=== PATIENT | female | born 1965 | race African-American/Black ===

== ENCOUNTER 2019-11-15 11:05 | Observation (INO) | payer OTHER ==
[2019-11-15] MEDS ORDERED: NA CHLORIDE 0.9% 1,000 ML ONE (12:00)
[2019-11-15] MEDS ORDERED: ACETAMINOPHEN 500 MG TAB ONE (12:00)
--- NOTE | 2019-11-15 12:07 | RAD REPORT ---
EXAM DESCRIPTION: RAD - Chest Single View - 11/15/2019 12:01 pm CLINICAL HISTORY: COUGH Chest pain. COMPARISON: No comparisons FINDINGS: Portable technique limits examination quality. The lungs are grossly clear. The heart is normal in size. No displaced fractures.Left port catheter h as tip in the SVC. IMPRESSION: No acute intrathoracic process suspected.
[2019-11-15 12:14] LABS: Absolute Lymphocytes (CBC) 0.8 K/uL (0.7-4.9); Basophils % 0.1 % (0-1.3); Lymphocytes % 11.6 % (15.3-44.8); MPV 8.3 fL (7.6-11.3); RBC Red Blood Cell Count 3.89 M/uL (3.86-4.86)
[2019-11-15 12:19] LABS: Potassium 3.4 mmol/L (3.5-5.1)
[2019-11-15] MEDS ORDERED: OSELTAMIVIR 75 MG CAP ONE (13:00)
[2019-11-15 13:10] LABS: Blood Morphology Comment NOT SEEN (NOT SEEN); Platelet Estimate ADEQ
--- NOTE | 2019-11-15 15:28 | ER ---
Nurse's Notes [facility] Name: Marisela Gomez Age: 54 yrs Sex: Female : 1965 Arrival Date: 11/15/2019 Time: 11:08 Bed 8 Private MD: Diagnosis: Hypotension;Influenza due to certain identified influenza viruses;Fever, unspecified Presentation: 11/15 11:17 Presenting complaint: Patient states: body aches, leg aching X 2 days, worse yesterday iw and head felt heavy , grandbaby was diagnosed with flu, vomited once last night. Transition of care: patient was not received from another setting of care. Onset of symptoms was November 13, 2019. Risk Assessment: Do you want to hurt yourself or someone else? Patient reports no desire to harm self or others. Initial Sepsis Screen: Does the patient meet any 2 criteria? Does the patient have a suspected source of infection?. 11:17 Method Of Arrival: Ambulatory iw 11:17 Acuity: JOSE 3 iw 14:31 Care prior to arrival: None. 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 - Social history:: Smoking status: Patient/guardian denies using tobacco. - Ebola Screening: : Patient negative for fever greater than or equal to 101.5 degrees Fahrenheit, and additional compatible Ebola Virus Disease symptoms Patient denies exposure to infectious person Patient denies travel to an Ebola-affected area in the 21 days before illness onset No symptoms or risks identified at this time. Screenin:02 Abuse screen: Denies threats or abuse. Denies injuries from another. Nutritional jl7 screening: No deficits noted. Tuberculosis screening: No symptoms or risk factors identified. Fall Risk IV access (20 points). Total Lantigua Fall Scale indicates No Risk (0-24 pts). Assessment: 11:20 General: Appears in no apparent distress. uncomfortable, ill, Behavior is calm, jl7 cooperative, appropriate for age. Pain: Complains of pain in achy all over Pain currently is 6 out of 10 on a pain scale. Neuro: Level of Consciousness is awake, alert, obeys commands, Oriented to person, place, time, situation. Cardiovascular: Patient's skin is warm and dry. Respiratory: Airway is patent Respiratory effort is even, unlabored, Respiratory pattern is regular, symmetrical. GI: Reports vomiting. : No signs and/or symptoms were reported regarding the genitourinary system. EENT: No signs and/or symptoms were reported regarding the EENT system. Derm: Skin is pink, warm \T\ dry. 12:30 Reassessment: Patient appears in no apparent distress at this time. No changes from ca1 previously documented assessment. Patient and/or family updated on plan of care and expected duration. Pain level reassessed. Patient is alert, oriented x 3, equal unlabored respirations, skin warm/dry/pink. 13:30 Reassessment: Patient appears in no apparent distress at this time. Patient and/or ca1 family updated on plan of care and expected duration. Pain level reassessed. Patient is alert, oriented x 3, equal unlabored respirations, skin warm/dry/pink. Patient states feeling better. 14:29 Reassessment: Patient appears in no apparent distress at this time. No changes from ca1 previously documented assessment. Patient and/or family updated on plan of care and expected duration. Pain level reassessed. Patient is alert, oriented x 3, equal unlabored respirations, skin warm/dry/pink. 17:08 Reassessment: Patient appears in no apparent distress at this time. Patient and/or jl7 family updated on plan of care and expected duration. Pain level reassessed. Patient is alert, oriented x 3, equal unlabored respirations, skin warm/dry/pink. Vital Signs: 11:18 BP 96 / 59; Pulse 103; Resp 18 S; Temp 103.2(O); Pulse Ox 98% on R/A; Weight 90.72 kg; iw Height 5 ft. 3 in. (160.02 cm); Pain 6/10; 12:01 BP 104 / 55; Pulse 97; Resp 16 S; Pulse Ox 99% on R/A; jl7 12:56 Pulse 87; Resp 19 S; Temp 101.8(O); Pulse Ox 94% on R/A; jl7 13:30 BP 87 / 54; Pulse 70; Resp 16 S; Pulse Ox 100% on R/A; jl7 14:29 BP 81 / 56; Pulse 74; Resp 14; Temp 99.6(O); Pulse Ox 97% on R/A; ca1 14:45 BP 91 / 57 Supine; Pulse 70; Resp 16 S; Pulse Ox 97% on R/A; jl7 15:00 BP 85 / 56 Standing; Pulse 76; Resp 17 S; Pulse Ox 99% on R/A; jl7 15:30 BP 86 / 58; Pulse 69; Resp 19 S; Pulse Ox 98% on R/A; jl7 16:00 BP 88 / 57; Pulse 72; Resp 17 S; Pulse Ox 100% on R/A; jl7 16:30 BP 90 / 54; Pulse 72; Resp 17 S; Pulse Ox 99% on R/A; jl7 17:08 BP 89 / 54; Pulse 72; Resp 16; Temp 98.8(O); Pulse Ox 100% on R/A; jl7 18:02 BP 95 / 58; Pulse 76; Resp 17 S; Pulse Ox 100% on R/A; jl7 11:18 Body Mass Index 35.43 (90.72 kg, 160.02 cm) iw ED Course: 11:08 Patient arrived in ED. mr 11:18 Triage completed. iw 11:21 Arm band placed on. iw 11:23 Benito Shelton FNP-C [facility]. la1 11:23 Chao Joyce MD is Attending Physician. la1 11:25 Patient has correct armband on for positive identification. Bed in low position. Call jl7 light in reach. Side rails up X 1. Pulse ox on. NIBP on. 11:26 Juwan Crouch, GENEVIEVE is Primary Nurse. jl7 11:38 Flu Sent. kj1 11:52 Inserted saline lock: 22 gauge in left antecubital area, using aseptic technique. Blood kj1 collected. 11:52 Initial lab(s) drawn, by ED staff, sent to lab. ca1 12:00 Chest Single View XRAY In Process Unspecified. EDMS 12:04 CBC with Diff Sent. kj1 12:04 BMP Sent. kj1 13:52 First set of blood cultures drawn by me. jl7 14:45 Second set of blood cultures drawn by me. jl7 15:11 Inserted saline lock: 22 gauge in left hand, using aseptic technique. Blood collected. jl7 15:26 Genoveva Alas MD is Hospitalizing Provider. la1 16:40 Assisted to bedside commode. jp3 18:07 No provider procedures requiring assistance completed. Patient admitted, IV remains in jl7 place. intact, No redness/swelling at site. Administered Medications: 12:00 Drug: NS 0.9% 1000 ml Route: IV; Rate: 1000 ml; Site: left antecubital; jl7 14:30 Follow up: Response: No adverse reaction; IV Status: Completed infusion; IV Intake: ca1 1000ml 12:00 Drug: Tylenol 1000 mg Route: PO; jl7 13:02 Follow up: Response: No adverse reaction; Temperature is decreased jl7 13:01 Drug: Tamiflu 75 mg Route: PO; jl7 14:30 Follow up: Response: No adverse reaction ca1 15:11 Drug: NS 0.9% 1000 ml Route: IV; Rate: 125 ml/hr; Site: left hand; jl7 18:08 Follow up: IV Status: Infusion continued upon admission jl7 15:43 Drug: NS 0.9% 500 ml Route: IV; Rate: bolus; Site: left hand; jl7 16:15 Follow up: Response: No adverse reaction; IV Status: Completed infusion; IV Intake: jl7 500ml Intake: 14:30 IV: 1000ml; Total: 1000ml. ca1 16:15 IV: 500ml; Total: 1500ml. jl7 Outcome: 15:26 Decision to Hospitalize by Provider. la1 18:07 Admitted to Tele accompanied by tech, family with patient, via wheelchair, room 204, jl7 with chart, Report called to GENEVIEVE Grimaldo 18:07 Condition: stable 18:07 Discharge instructions given to patient, family, Instructed on the need for admit, Demonstrated understanding of instructions. 18:09 Patient left the ED. jl7 Signatures: Dispatcher [employer] SHRAVAN Jessica JimEricka RN RN iw Benito Shelton, TRUCKING CONTRACTOR-C TRUCKING CONTRACTOR-Cla1 Juwan Crouch RN RN jl7 Rell Xiong jp3 Alayna Duncan RN RN ca1 Yuli Gonzalez kj1 Corrections: (The following items were deleted from the chart) 11:17 Acuity: JOSE 4 iw iw
--- NOTE | 2019-11-15 15:28 | EDPHYS ---
Physician Documentation [facility] Name: Marisela Gomez Age: 54 yrs Sex: Female : 1965 Arrival Date: 11/15/2019 Time: 11:08 Bed 8 Private MD: ED Physician Chao Joyce HPI: 11/15 12:43 This 54 yrs old Black Female presents to ER via Ambulatory with complaints of Headache. la1 12:43 This 54 yrs old Black Female presents to ER via Ambulatory with complaints of body la1 aches, fever. 12:43 The patient complains of pain to the forehead, right zoroastrianism and left zoroastrianism. Onset: The la1 symptoms/episode began/occurred 2 day(s) ago. Associated signs and symptoms: Pertinent positives: fever, nausea, Pertinent negatives: altered mental status, neck stiffness, paresthesias, sinus tenderness, vision changes, vision loss. Severity of symptoms: At its worst the pain was mild. pt reports she has a family member who was dx with the flu. Has been having body aches and pains with fever for the last 2 days. . 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 - Social history:: Smoking status: Patient/guardian denies using tobacco. - Ebola Screening: : Patient negative for fever greater than or equal to 101.5 degrees Fahrenheit, and additional compatible Ebola Virus Disease symptoms Patient denies exposure to infectious person Patient denies travel to an Ebola-affected area in the 21 days before illness onset No symptoms or risks identified at this time. ROS: 12:44 Constitutional: + fever Eyes: Negative for injury, pain, redness, and discharge, ENT: la1 Negative for injury, pain, and discharge, Neck: Negative for injury, pain, and swelling, Cardiovascular: Negative for chest pain, palpitations, and edema, Respiratory: + for cough and pleuritic chest pain' Abdomen/GI: + for nausea, vomited x 1 Back: Negative for injury and pain, MS/Extremity: Negative for injury and deformity, Skin: Negative for injury, rash, and discoloration, Neuro: Negative for headache, weakness, numbness, tingling, and seizure. Exam: 12:45 Constitutional: This is a well developed, well nourished patient who is awake, alert, la1 and in no acute distress. Head/Face: Normocephalic, atraumatic. Eyes: Pupils equal round and reactive to light, extra-ocular motions intact. Periorbital areas with no swelling, redness, or edema. ENT: Mucous membranes moist. Neck: Trachea midline, no thyromegaly or masses palpated, and no cervical lymphadenopathy. Supple, full range of motion without nuchal rigidity, or vertebral point tenderness. No Meningismus. Chest/axilla: Normal chest wall appearance and motion. Nontender with no deformity. No lesions are appreciated. Cardiovascular: Regular rate and rhythm with a normal S1 and S2. No gallops, murmurs, or rubs. Normal PMI, no JVD. No pulse deficits. Respiratory: Lungs have equal breath sounds bilaterally, clear to auscultation . No rales, rhonchi or wheezes noted. No increased work of breathing, no retractions or nasal flaring. Abdomen/GI: Soft, non-tender, with normal bowel sounds. No distension or tympany. No guarding or rebound. No evidence of tenderness throughout. Back: No spinal tenderness. No costovertebral tenderness. Full range of motion. Neuro: Awake and alert, GCS 15, oriented to person, place, time, and situation. l. Normal gait. Vital Signs: 11:18 BP 96 / 59; Pulse 103; Resp 18 S; Temp 103.2(O); Pulse Ox 98% on R/A; Weight 90.72 kg; iw Height 5 ft. 3 in. (160.02 cm); Pain 6/10; 12:01 BP 104 / 55; Pulse 97; Resp 16 S; Pulse Ox 99% on R/A; jl7 12:56 Pulse 87; Resp 19 S; Temp 101.8(O); Pulse Ox 94% on R/A; jl7 13:30 BP 87 / 54; Pulse 70; Resp 16 S; Pulse Ox 100% on R/A; jl7 14:29 BP 81 / 56; Pulse 74; Resp 14; Temp 99.6(O); Pulse Ox 97% on R/A; ca1 14:45 BP 91 / 57 Supine; Pulse 70; Resp 16 S; Pulse Ox 97% on R/A; jl7 15:00 BP 85 / 56 Standing; Pulse 76; Resp 17 S; Pulse Ox 99% on R/A; jl7 15:30 BP 86 / 58; Pulse 69; Resp 19 S; Pulse Ox 98% on R/A; jl7 16:00 BP 88 / 57; Pulse 72; Resp 17 S; Pulse Ox 100% on R/A; jl7 16:30 BP 90 / 54; Pulse 72; Resp 17 S; Pulse Ox 99% on R/A; jl7 17:08 BP 89 / 54; Pulse 72; Resp 16; Temp 98.8(O); Pulse Ox 100% on R/A; jl7 18:02 BP 95 / 58; Pulse 76; Resp 17 S; Pulse Ox 100% on R/A; jl7 11:18 Body Mass Index 35.43 (90.72 kg, 160.02 cm) iw MDM: 11:23 Patient medically screened. la1 15:26 Data reviewed: vital signs, nurses notes, lab test result(s), EKG, I have discussed the la1 patient's presentation/case with the attending Emergency Department Physician; and as a result, I will admit patient. Data interpreted: Pulse oximetry: on room air is 99 %. Interpretation: normal. Counseling: I had a detailed discussion with the patient and/or guardian regarding: the historical points, exam findings, and any diagnostic results supporting the discharge/admit diagnosis, lab results, the need for further work-up and treatment in the hospital. Physician consultation: Genoveva Alas MD was called at 15:28, was contacted at 15:28, regarding admission, to the telemetry unit. and will see patient. ED course: pt BP maintaining in the high 80s low 90s after fluids, lactate is WNL, no elevation in WBC. Discussed concern with ED attending who agrees it would be jimenez to admit patient in observation status due to concern for hypotension and worsening of symptoms. 11/15 11:27 Order name: Flu; Complete Time: 12:06 [facility] 11/15 11:43 Order name: CBC with Diff; Complete Time: 14:31 [facility] 11/15 11:43 Order name: BMP; Complete Time: 12:40 [facility] 11/15 13:10 Order name: Manual Differential; Complete Time: 14:31 [facility] 11/15 14:35 Order name: Blood Culture Adult (2) [facility] 11/15 14:35 Order name: Lactate; Complete Time: 15:19 [facility] 11/15 11:43 Order name: Chest Single View XRAY; Complete Time: 12:10 [facility] 11/15 11:43 Order name: SL; Complete Time: 12:01 [facility] Administered Medications: 12:00 Drug: NS 0.9% 1000 ml Route: IV; Rate: 1000 ml; Site: left antecubital; 7 14:30 Follow up: Response: No adverse reaction; IV Status: Completed infusion; IV Intake: ca1 1000ml 12:00 Drug: Tylenol 1000 mg Route: PO; jl7 13:02 Follow up: Response: No adverse reaction; Temperature is decreased jl7 13:01 Drug: Tamiflu 75 mg Route: PO; jl7 14:30 Follow up: Response: No adverse reaction ca1 15:11 Drug: NS 0.9% 1000 ml Route: IV; Rate: 125 ml/hr; Site: left hand; jl7 18:08 Follow up: IV Status: Infusion continued upon admission [facility] 15:43 Drug: NS 0.9% 500 ml Route: IV; Rate: bolus; Site: left hand; jl7 16:15 Follow up: Response: No adverse reaction; IV Status: Completed infusion; IV Intake: jl7 500ml Disposition: 18:33 Co-signature as Attending Physician, Chao Joyce MD I agree with the assessment and kdr plan of care. Disposition: 11/15/19 15:26 Hospitalization ordered by Genoveva Alas for Observation. Preliminary diagnosis are Hypotension, Influenza due to certain identified influenza viruses, Fever, unspecified. - Bed requested for Telemetry/MedSurg (observation). - Status is Observation. jl7 - Condition is Stable. - Problem is new. - Symptoms are unchanged. UTI on Admission? No Signatures: Dispatcher [employer] EDSC Chao Joyce MD MD [facility] Ericka Gonzalez RN RN Benito Foster FNP-C OSTRICH FARMER-Cla1 Juwan Crouch RN RN jl7 Oliver Mckeon, RN RN ja1 Alayna Duncan RN ca1 Corrections: (The following items were deleted from the chart) 17:32 15:26 Hospitalization Ordered by Genoveva Alas MD for Observation. Preliminary diagnosis ja1 is Hypotension; Influenza due to certain identified influenza viruses; Fever, unspecified. Bed requested for Telemetry/MedSurg (observation). Status is Observation. Condition is Stable. Problem is new. Symptoms are unchanged. UTI on Admission? No. la1 18:09 17:32 11/15/2019 15:26 Hospitalization Ordered by Genoveva Alas MD for Observation. jl7 Preliminary diagnosis is Hypotension; Influenza due to certain identified influenza viruses; Fever, unspecified. Bed requested for Telemetry/MedSurg (observation). Status is Observation. Condition is Stable. Problem is new. Symptoms are unchanged. UTI on Admission? No. ja1
[2019-11-15 18:22] VITALS: BMI 33.3
[2019-11-15] MEDS: INSULIN -REGULAR HUMAN 50 UNIT/0.5 ML ML SQ SCH ×2 (18:44→20:22)
[2019-11-15] MEDS ORDERED: ACETAMINOPHEN 500 MG TAB PO PRN (18:44)
[2019-11-15] MEDS ORDERED: ONDANSETRON 4 MG/2 ML VIAL IV PRN (18:44)
[2019-11-15] MEDS: NA CHLORIDE 0.9% 1,000 ML IV SCH (19:04)
--- NOTE | 2019-11-15 20:06 | HP ---
Date of Admission: 11/15/2019 Chief Complaint: Generalized malaise. History Of Present Illness: Patient is a 54-year-old female with past medical history of essential h ypertension, diabetes, congestive heart failure, post chemotherapy, systolic dysfunction, thyroid nod ules, history of breast cancer, status post surgery, chemo and radiation, currently in remission foll ows at [facility], comes in with 2 days of generalized malaise as well as some generalized weakness, some cough that is nonproductive. The patient's symptoms are constant, moderate, progressively wors ening. She does report being exposed to her grandson who was an who was found to be positive for the flu. Patient was febrile upon arrival to the ER. She otherwise denies any significant chill s, nausea, vomiting. In the ER, she was found to be hypotensive in the 90s/50s and continued to drop her blood pressure was 80s/50s. The patient's workup revealed white count of 7, her potassium was 3 .4, glucose was 185. Lactate was negative. She did not appear to be septic. Her influenza screen c zeferino back positive for flu B. Chest x-ray did not show any acute changes. Patient was then referred for admission. She was given 1 L normal saline bolus and Tamiflu. When seen in the ER, she was awak e, alert, oriented x3, in some mild distress. Past Medical History: Hypertension; diabetes mellitus type 2, non-insulin requiring; congestive hear t failure; systolic dysfunction; breast cancer status diagnosed in 2015, status post mastectomy on th e right in 2017; and chemo and radiation therapy, thyroid nodules. Past Surgical History: Right mastectomy in 2017, thyroid nodule biopsy, Port-A-Cath on the left. Allergies: NO KNOWN DRUG ALLERGIES. Medications: The patient is on Coreg, Entresto, and metformin. Social History: Patient denies any tobacco use or alcohol use. Family History: Positive for hypertension. Review of Systems: Ten-point system reviewed, negative except as per HPI. Physical Examination: Vital Signs: Blood pressure 96/56, pulse 103, respirations 18, temperature 103.2. BMI is 35.4. General: Awake, alert, oriented x3, ill-appearing female, obese, BMI 35. HEENT: Normocephalic, atraumatic. PERRLA, EOMI. Dry mucous membranes. Oropharynx is clear. Conju nctivae anicteric. Neck: Supple. No JVD trachea midline. CV: S1, S2. Regular rate and rhythm. Peripheral pulses present. Respiratory: Moving air well bilaterally. No wheezing or stridor. No use of accessory muscles. Gastrointestinal: Abdomen is soft, nontender, nondistended. Positive bowel sounds. No guarding or rigidity. Extremities: No clubbing, cyanosis, or edema. No calf tenderness. Neuro: Cranial nerves 2 through 12 intact grossly. No focal neurological deficits. Speech is susy l. Skin: No rashes. Normal skin turgor. Psych: Mood is okay. Affect is full. Insight and judgment are good. Laboratory Data: Sodium 138, potassium 3.4, chloride 104, CO2 of 28, BUN 13, creatinine 1.14, glucos e 185, lactate 1, calcium 8.5. WBC 7.1, H and H 12 and 36, platelets 145, neutrophils 72%, lymphocyt es 11.6%, monocytes 15.9%. Influenza B positive. Imaging Studies: Chest x-ray personally reviewed shows no acute intrathoracic process. Left port ca theter has tip in the SVC. Assessment And Plan: A 54-year-old female with 1.Acute hypotension likely related to flu, possibly developing sepsis. 2.Systemic inflammatory response syndrome. Patient has temperature 103.2. Patient is tachypneic. Does have influenza. Patient received 1 L normal saline bolus. Does have history of congestive hear t failure. We will repeat 0.5 L bolus and follow up on blood pressure. Patient will watch for signs of developing sepsis. Blood cultures have been obtained. Continue with Tamiflu for influenza B. 3.Influenza B. Continue Tamiflu 75 mg p.o. b.i.d. Droplet precautions. 4.History of essential hypertension. We will hold blood pressure medications for now due to acute h ypotension. 5.Diabetes mellitus type 2. We will start on sliding scale insulin and monitor blood glucose levels . 6.Congestive heart failure, systolic dysfunction. Patient is on Entresto. We will monitor I's and O's, free fluid restriction. 7.History of breast cancer, status post right mastectomy. 8.Obesity, BMI 35. Counseled. 9.Deep venous thrombosis prophylaxis, Lovenox. Plan: Admit patient to Med-Surg, place in observation. SA/MODL Voice ID: [id number]
[2019-11-15] MEDS: ALBUTEROL 2.5 MG/3 ML NEB SOL NEB SCH (20:20)
[2019-11-15] MEDS: IPRATROPIUM BROM 0.5MG/2.5ML NEB SCH (20:20)
[2019-11-15] MEDS: OSELTAMIVIR 75 MG CAP PO SCH (20:23)
[2019-11-15 21:41] LABS: Urine Appearance CLEAR; Urine Bilirubin NEGATIVE (NEG); Urine Blood TRACE (NEG); Urine Color YELLOW; Urine Glucose NEGATIVE (NEG); Urine Protein NEGATIVE (NEG); Urine Specific Gravity 1.015 (1.005-1.030); Urine Urobilinogen 0.2 mg/dL (0.2-1.0)
[2019-11-15 21:58] LABS: Urine Bacteria 20-50 /HPF (<20)
[2019-11-15 21:59] LABS: Urine Culture Reflex Order REFLEXED
[2019-11-16 01:23] VITALS: O2SAT 97
[2019-11-16] MEDS: ALBUTEROL 2.5 MG/3 ML NEB SOL NEB SCH ×2 (02:00→07:50)
[2019-11-16] MEDS: IPRATROPIUM BROM 0.5MG/2.5ML NEB SCH ×2 (02:00→07:50)
[2019-11-16] MEDS: NA CHLORIDE 0.9% 1,000 ML IV SCH (03:55)
[2019-11-16 06:05] LABS: Absolute Lymphocytes (CBC) 1.2 K/uL (0.7-4.9); Basophils % 0.3 % (0-1.3); Hematocrit 32.7 % (36.0-45.0); Lymphocytes % 28.5 % (15.3-44.8); MPV 8.7 fL (7.6-11.3); RBC Red Blood Cell Count 3.52 M/uL (3.86-4.86)
[2019-11-16 06:16] LABS: ALT/SGPT 39 U/L (12-78); AST/SGOT 36 U/L (15-37); Albumin 2.9 g/dL (3.4-5.0); Alkaline Phosphatase 31 U/L (45-117); BUN Blood Urea Nitrogen 12 mg/dL (7-18); Bicarbonate 24 mmol/L (21-32); Bilirubin Total 0.3 mg/dL (0.2-1.0); Glucose Level 87 mg/dL (74-106); Magnesium 1.9 mg/dL (1.8-2.4); Potassium 3.5 mmol/L (3.5-5.1); Sodium Level 144 mmol/L (136-145)
[2019-11-16] MEDS: INSULIN -REGULAR HUMAN 50 UNIT/0.5 ML ML SQ SCH (07:30)
[2019-11-16] MEDS ORDERED: INFLUENZA VACCINE (for 3y+) 0.5 ML DOSE IMVAC ONE (08:00)
[2019-11-16] MEDS: OSELTAMIVIR 75 MG CAP PO SCH (08:54)
[2019-11-16] MEDS ORDERED: ENOXAPARIN 40 MG/0.4 ML SQ SCH (09:00)
[2019-11-16] MEDS ORDERED: POTASSIUM CL SA 10 MEQ TAB PO ONE (09:00)
[2019-11-16 09:03] VITALS: BP 114/58; TEMP 98.7
--- NOTE | 2019-11-17 03:53 | DS ---
Date of Discharge: 11/16/2019 Admitting Diagnoses: 1.Systemic inflammatory response syndrome. 2.Influenza A. 3.Acute hypotension. 4.History of diabetes mellitus type 2, stable. 5.Congestive heart failure, systolic dysfunction on Entresto. 6.History of essential hypertension, currently hypotensive. 7.History of breast cancer, status post right mastectomy. 8.Obesity, BMI 35. 9.Hypokalemia. Hospital Course: Patient is a 54-year-old female with multiple comorbid conditions including hyperte nsion, diabetes, heart failure, comes in with generalized malaise. Patient was found to be flu posit cliff, she was started on Tamiflu. She was also found to be hypotensive. Blood pressure refractory to IV fluids bolus dropping down to the 80s/50s. She also had some hypokalemia. Patient was thought t o be developing sepsis. She was tachycardic, tachypneic, and hypotensive. Patient did respond event ually to IV fluids. She had high temperature as well 103.2. She was observed overnight in [facility], continued with IV hydration and it did improve, her blood pressure came up to the 114/58. Patie nt stated that she usually does stay on the low side between 120s to 110s. She was instructed to hol d her blood pressure medications for blood pressure less than 140. Overall, patient did well. She h ad improvement in her condition. She had some low-grade temperatures of 100.5 last night around midn ight, since then has been afebrile. Patient was able to ambulate without difficulty. No dizziness. The patient's generalized malaise also improved. Patient was then cleared for discharge and was sen t home in a stable condition activity as tolerated. Medications: As per medication reconciliation list. Finish off course of Tamiflu. Followup: Follow up with primary care physician in 2-3 days. Return to ER for worsening condition. Diet: Heart healthy. Activity: As tolerated. Discharge Instructions: Patient also instructed to ask family members to be tested for flu-type symp toms and to continue with droplet precautions. Good handwashing to prevent spread of the flu. Physical Examination: General: Awake, alert, and oriented x3, obese female, not in any acute distress. CV: S1, S2. No murmurs. Regular rate and rhythm. Respiratory: Moving air well bilaterally. No wheezing or stridor. No use of accessory muscles. Gastrointestinal: Abdomen is soft, nontender, nondistended. Positive bowel sounds. Extremities: No clubbing, cyanosis, or edema. Neurologic: Nonfocal. SA/MODL Voice ID: [id number] Report ID: [id number]
== END 2019-11-16 10:18 | disposition home or self-care (01) ==
LOC: ER 11:05 → ERHOLD 16:06 → 2ND 18:06
PROVIDERS: ADMIT Family Medicine; ATTEND Family Medicine
DX: J11.1 Influenza due to unidentified influenza virus with other respiratory manifestations (principal); I95.9 Hypotension, unspecified; E11.9 Type 2 diabetes mellitus without complications; I11.0 Hypertensive heart disease with heart failure; I50.22 Chronic systolic (congestive) heart failure; E66.9 Obesity, unspecified; Z68.33 Body mass index [BMI] 33.0-33.9, adult; Z85.3 Personal history of malignant neoplasm of breast; E87.6 Hypokalemia
CPT/HCPCS: 96361; 87040 ×2; 87088; 85025 ×2; 81001; 87086; 80048; 36415; 83735; 82947 ×3; 83605; 80053; 87804 ×2; 71045; 94640 ×3; 94760 ×2; 96360; 99285; J1650; J7030 ×3; G0378 ×3

== ENCOUNTER 2020-02-29 18:14 | Emergency (ER) | payer OTHER ==
[2020-02-29] MEDS ORDERED: HYDROCODONE/APAP 5/325 MG TAB ONE (19:57)
--- NOTE | 2020-02-29 20:06 | RAD REPORT ---
EXAM DESCRIPTION: RAD - Hand Left 3 View - 02/29/2020 7:57 pm CLINICAL HISTORY: PAIN COMPARISON: No comparisons FINDINGS: A mild tuft fracture is suspected involving the thumb. No additional fracture seen.
--- NOTE | 2020-02-29 21:03 | ER ---
Nurse's Notes [facility] Name: Marisela Gomez Age: 54 yrs Sex: Female : 1965 Arrival Date: 02/29/2020 Time: 18:16 Bed 24 Private MD: Diagnosis: Nondisplaced fracture of distal phalanx of left thumb Presentation: 02/28 19:12 Chief complaint: Patient states: "I closed my fingers in the garage door.". Coronavirus jd3 screen: Proceed with normal triage. Ebola Screen: Patient negative for fever greater than or equal to 101.5 degrees Fahrenheit, and additional compatible Ebola Virus Disease symptoms. Initial Sepsis Screen: Does the patient meet any 2 criteria? No. Patient's initial sepsis screen is negative. Does the patient have a suspected source of infection? No. Patient's initial sepsis screen is negative. Risk Assessment: Do you want to hurt yourself or someone else? Patient reports no desire to harm self or others. Onset of symptoms was February 29, 2020. 19:12 Method Of Arrival: Ambulatory jd3 19:12 Acuity: JOSE 4 jd3 Triage Assessment: 20:00 General: Appears in no apparent distress. Behavior is calm, cooperative, appropriate jv1 for age. Pain: Complains of pain in little finger, ring finger and middle finger in the left hand Pain radiates to left arm Pain currently is 7 out of 10 on a pain scale. Quality of pain is described as aching, Pain began 2 hours ago. EENT: No deficits noted. Neuro: Level of Consciousness is awake, alert, obeys commands, Oriented to person, place, time, situation, Appropriate for age Speech is normal. Cardiovascular: Denies chest pain, Heart tones S1 S2 present. Respiratory: Airway is patent Respiratory effort is even, unlabored, Respiratory pattern is regular, symmetrical. GI: No signs and/or symptoms were reported involving the gastrointestinal system. Bowel sounds present X 4 quads. : No signs and/or symptoms were reported regarding the genitourinary system. Derm: Skin is intact, is healthy with good turgor. Musculoskeletal: Capillary refill < 3 seconds, Range of motion: limited in left hand. Injury Description: Crush injury sustained to left hand specifically the little, ring and middle finger was sustained 1-2 hours ago. 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 - Social history:: Smoking status: Patient denies any tobacco usage or history of. Patient/guardian denies using alcohol, street drugs, The patient lives with family. - Family history:: not pertinent. Screenin:59 Abuse screen: Denies threats or abuse. Nutritional screening: No deficits noted. jv1 Tuberculosis screening: No symptoms or risk factors identified. Fall Risk None identified. Assessment: 20:00 Reassessment: Patient appears in no apparent distress at this time. Patient and/or ls4 family updated on plan of care and expected duration. Pain level reassessed. Patient is alert, oriented x 3, equal unlabored respirations, skin warm/dry/pink. 21:20 Reassessment: Patient appears in no apparent distress at this time. Patient and/or ls4 family updated on plan of care and expected duration. Pain level reassessed. Patient is alert, oriented x 3, equal unlabored respirations, skin warm/dry/pink. Vital Signs: 19:17 BP 116 / 82; Pulse 61; Resp 16 S; Temp 98.8(O); Pulse Ox 96% on R/A; Weight 84.37 kg jd3 (R); Height 5 ft. 2 in. (157.48 cm) (R); Pain 4/10; 19:17 Body Mass Index 34.02 (84.37 kg, 157.48 cm) jd3 ED Course: 18:16 Patient arrived in ED. ag5 19:14 Triage completed. jd3 19:18 Arm band placed on. jd3 19:20 No provider procedures requiring assistance completed. Patient did not have IV access ls4 during this emergency room visit. 19:29 rGant Moreno PA is PHCP. ihsan 19:29 David Soler MD is Attending Physician. [facility] 19:58 Hand Left 3 View XRAY In Process Unspecified. EDMS 20:06 Bed in low position. Side rails up X 1. jv1 20:27 Akanksha Mehta, RN is Primary Nurse. ls4 Administered Medications: 19:59 Drug: [place] 5 mg-325 mg 1 tabs Route: PO; jv1 21:14 Follow up: Response: No adverse reaction; Marked relief of symptoms ls4 Outcome: 21:02 Discharge ordered by . sheri 21:20 Patient left the ED. ls4 21:20 Discharged to home ambulatory. ls4 21:20 Condition: stable 21:20 Discharge instructions given to patient, Instructed on discharge instructions, follow up and referral plans. Demonstrated understanding of instructions, follow-up care, medications, Prescriptions given X 1. Signatures: Dispatcher [employer] EDMS Grant Moreno PA PA jmm Davies, Jonathon, RN RN jd3 David Soler MD MD ma2 Chapis Gross RN RN jv1 Akanksha Mehta, RN RN ls4 Bridget Perales ag5 Corrections: (The following items were deleted from the chart) 23:47 21:51 Patient left the ED. ls4 ls4
--- NOTE | 2020-02-29 21:03 | EDPHYS ---
Physician Documentation [facility] Name: Marisela Gomez Age: 54 yrs Sex: Female : 1965 Arrival Date: 02/29/2020 Time: 18:16 Bed 24 Private MD: ED Physician David Soler HPI: 02/28 21:00 This 54 yrs old Black Female presents to ER via Ambulatory with complaints of Finger ma2 Injury. 21:00 Mechanism of injury: Crush injury:. Associated injuries: The patient sustained hand ma2 injury, garage door closed on hand . The patient has not experienced similar symptoms in the past. no laceration . 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 - Social history:: Smoking status: Patient denies any tobacco usage or history of. Patient/guardian denies using alcohol, street drugs, The patient lives with family. - Family history:: not pertinent. ROS: 21:00 Constitutional: Negative for fever, chills, and weight loss. ma2 21:00 All other systems are negative. Exam: 21:00 Constitutional: This is a well developed, well nourished patient who is awake, alert, ma2 and in no acute distress. Neck: Trachea midline, no thyromegaly or masses palpated, and no cervical lymphadenopathy. Supple, full range of motion without nuchal rigidity, or vertebral point tenderness. No Meningismus. Chest/axilla: Normal chest wall appearance and motion. Nontender with no deformity. No lesions are appreciated. Cardiovascular: Regular rate and rhythm with a normal S1 and S2. No gallops, murmurs, or rubs. Normal PMI, no JVD. No pulse deficits. Respiratory: Lungs have equal breath sounds bilaterally, clear to auscultation and percussion. No rales, rhonchi or wheezes noted. No increased work of breathing, no retractions or nasal flaring. Abdomen/GI: Soft, non-tender, with normal bowel sounds. No distension or tympany. No guarding or rebound. No evidence of tenderness throughout. Skin: Warm, dry with normal turgor. Normal color with no rashes, no lesions, and no evidence of cellulitis. MS/ Extremity: left hand contusion to distal phalanx all finger, no laceration, nails intactPulses equal, no cyanosis. Neurovascular intact. Full, normal range of motion. Neuro: Awake and alert, GCS 15, oriented to person, place, time, and situation. Cranial nerves II-XII grossly intact. Motor strength 5/5 in all extremities. Sensory grossly intact. Cerebellar exam normal. Normal gait. Vital Signs: 19:17 BP 116 / 82; Pulse 61; Resp 16 S; Temp 98.8(O); Pulse Ox 96% on R/A; Weight 84.37 kg jd3 (R); Height 5 ft. 2 in. (157.48 cm) (R); Pain 4/10; 19:17 Body Mass Index 34.02 (84.37 kg, 157.48 cm) jd3 Procedures: 21:00 Splinting: Splint applied to left hand using finger spplint . applied by tech. Examined ma2 by me, post splint application:. MDM: 19:38 Patient medically screened. ma2 21:00 Differential diagnosis: cardiac contusion, extremity fracture. Data reviewed: vital ma2 signs, nurses notes. Counseling: I had a detailed discussion with the patient and/or guardian regarding: the historical points, exam findings, and any diagnostic results supporting the discharge/admit diagnosis, the presence of at least one elevated blood pressure reading (>120/80) during this emergency department visit, the need for outpatient follow up. Response to treatment: the patient's symptoms have markedly improved after treatment. 02/28 19:39 Order name: Hand Left 3 View XRAY; Complete Time: 20:59 ma2 02/28 21:03 Order name: Thumb Spica Splint; Complete Time: 21:04 ma2 02/28 21:04 Interpretation: Within normal limits. ma2 Administered Medications: 19:59 Drug: [place] 5 mg-325 mg 1 tabs Route: PO; jv1 21:14 Follow up: Response: No adverse reaction; Marked relief of symptoms ls4 Disposition: 02/29/20 21:02 Discharged to Home. Impression: Nondisplaced fracture of distal phalanx of left thumb. - Condition is Stable. - Discharge Instructions: Finger Fracture. - Prescriptions for Diclofenac Sodium 75 mg Oral Tablet Sustained Release - take 1 tablet by ORAL route 2 times per day; 30 tablet. - Medication Reconciliation Form, Thank You Letter, Antibiotic Education, Prescription Opioid Use form. - Follow up: Private Physician; When: Tomorrow; Reason: Continuance of care. Signatures: Dispatcher [employer] EDSatish Frost RN RN jd3 David Soler MD MD ma2 Chapis Gross RN RN jv1 Akanksha Mehta RN RN ls4 Corrections: (The following items were deleted from the chart) 21:04 21:04 Abnormal. hi2 [facility] 21:11 21:04 Splint [place]. [place] [id number] 21:51 21:02 02/29/2020 21:02 Discharged to Home. Impression: Nondisplaced fracture of distal ls4 phalanx of left thumb. Condition is Stable. Prescriptions for Diclofenac Sodium 75 mg Oral Tablet Sustained Release - take 1 tablet by ORAL route 2 times per day; 30 tablet. and Forms are Medication Reconciliation Form, Thank You Letter, Antibiotic Education, Prescription Opioid Use. Follow up: Private Physician; When: Tomorrow; Reason: Continuance of care. [facility]
[2020-02-29 21:55] VITALS: BP 116/82; TEMP 98.8; O2SAT 96
== END 2020-02-29 21:51 | disposition home or self-care (01) ==
LOC: ER 18:14
PROC: 2W3HX1Z Immobilization of Left Thumb using Splint (ICD-10-PCS; principal; 2020-02-29)
DX: S62.525A Nondisplaced fracture of distal phalanx of left thumb, initial encounter for closed fracture (principal); W23.0XXA Caught, crushed, jammed, or pinched between moving objects, initial encounter; Y93.9 Activity, unspecified; Y92.9 Unspecified place or not applicable; I10 Essential (primary) hypertension; Z85.3 Personal history of malignant neoplasm of breast; Z90.11 Acquired absence of right breast and nipple
CPT/HCPCS: 99283